=== PATIENT | female | born 1970 | race Caucasian/White ===

== ENCOUNTER 2018-02-11 10:58 | Emergency (ER) | END 2018-02-11 14:17 | disposition home or self-care (01) | DX: M54.5 Low back pain (principal); M54.6 Pain in thoracic spine; R10.9 Unspecified abdominal pain; R06.00 Dyspnea, unspecified; F17.200 Nicotine dependence, unspecified, uncomplicated; Z87.19 Personal history of other diseases of the digestive system; Z86.59 Personal history of other mental and behavioral disorders | CPT/HCPCS: 71046; 74176; 80053; 81001; 85025; 85379; 96374; 99285; J1885; J7030 ==